=== PATIENT | male | born 1995 | race Caucasian/White ===

== ENCOUNTER 2019-03-06 01:07 | Emergency (ER) | payer OTHER ==
[2019-03-06] MEDS ORDERED: Sodium Chloride 0.9% 1,000 ML IV ONE (01:09)
[2019-03-06] MEDS ORDERED: Aspirin 81 MG Tab.Chew PO ONE (01:09)
--- NOTE | 2019-03-06 01:12 | EDM.PDOC ---
ED HPI GENERAL MEDICAL PROBLEM - General Chief Complaint: Chest Pain Stated Complaint: CHEST PAIN Time Seen by Provider: 03/06/19 01:12 Source of Information: Reports: Patient - History of Present Illness INITIAL COMMENTS - FREE TEXT/NARRATIVE: HISTORY AND PHYSICAL: History of present illness: [Patient developed left-sided chest pain after going to bed tonight he rated 8 out of 10 became very anxious as he thought he may be having a heart attack pain increased on arrival is in no distress not associated with shortness of breath or diaphoresis no radiation arm neck or jaw however I can change worsen symptoms with movement of the left shoulder girdle is clear muscle spasm over left pectoralis major no fever nausea vomiting chills sweats] Review of systems: As per history of present illness and below otherwise all systems reviewed and negative. Past medical history: As per history of present illness and as reviewed below otherwise noncontributory. Surgical history: As per history of present illness and as reviewed below otherwise noncontributory. Social history: No reported history of drug or alcohol abuse. Family history: As per history of present illness and as reviewed below otherwise noncontributory. Physical exam: HEENT: Atraumatic, normocephalic, pupils reactive, negative for conjunctival pallor or scleral icterus, mucous membranes moist, throat clear, neck supple, nontender, trachea midline. Lungs: Clear to auscultation, breath sounds equal bilaterally, chest nontender. Heart: S1S2, regular, negative for clicks, rubs, or JVD. Abdomen: Soft, nondistended, nontender. Negative for masses or hepatosplenomegaly. Negative for costovertebral tenderness. Pelvis: Stable nontender. Genitourinary: Deferred. Rectal: Deferred. Extremities: Atraumatic, negative for cords or calf pain. Neurovascular unremarkable. Neuro: Awake, alert, oriented. Cranial nerves II through XII unremarkable. Cerebellum unremarkable. Motor and sensory unremarkable throughout. Exam nonfocal. Diagnostics: [CBC CMP troponin EKG Chest 1 view ] Therapeutics: [ normal saline Aspirin 324 mg chewable ] Impression: [ muscle spasm -left pectoralis major] Definitive disposition and diagnosis as appropriate pending reevaluation and review of above. chest Pain Score (Numeric/FACES): 0 - Related Data Allergies Allergy/AdvReac Type Severity Reaction Status Date / Time No Known Allergies Allergy Verified 03/06/19 01:08 Home Meds: Home Meds . [No Known Home Meds] 03/06/19 [History] ED ROS GENERAL - Review of Systems Review Of Systems: See Below ED EXAM, GENERAL - Physical Exam Exam: See Below Course - Vital Signs Last Recorded V/S: Last Vital Signs Temp 96.3 F 03/06/19 01:09 Pulse 97 03/06/19 01:09 Resp 18 03/06/19 01:09 BP 156/97 H 03/06/19 01:09 Pulse Ox 100 03/06/19 01:09 - Orders/Labs/Meds Orders: Active Orders 24 hr Category Date Time Status EKG Documentation Completion [RC] STAT Care 03/06/19 01:09 Active Labs: Laboratory Tests 03/06/19 03/06/19 03/06/19 Range/Units 01:17 01:17 01:17 WBC 12.91 H (4.0-11.0) K/uL RBC 4.60 (4.50-5.90) M/uL Hgb 14.1 (13.0-17.0) g/dL Hct 39.6 (38.0-50.0) % MCV 86.1 (80.0-98.0) fL MCH 30.7 (27.0-32.0) pg MCHC 35.6 (31.0-37.0) g/dL RDW Std Deviation 36.7 (28.0-62.0) fl RDW Coeff of Gop[place] 12 (11.0-15.0) % Plt Count 270 (150-400) K/uL MPV 8.70 (7.40-12.00) fL Neut % (Auto) 69.7 (48.0-80.0) % Lymph % (Auto) 19.0 (16.0-40.0) % [place] % (Auto) 10.7 (0.0-15.0) % Eos % (Auto) 0.4 (0.0-7.0) % Baso % (Auto) 0.2 (0.0-1.5) % Neut # (Auto) 9.0 H (1.4-5.7) K/uL Lymph # (Auto) 2.5 H (0.6-2.4) K/uL [place] # (Auto) 1.4 H (0.0-0.8) K/uL Eos # (Auto) 0.1 (0.0-0.7) K/uL Baso # (Auto) 0.0 (0.0-0.1) K/uL Sodium 139 (136-148) mmol/L Potassium 3.4 L (3.5-5.1) mmol/L Chloride 99 (98-107) mmol/L Carbon Dioxide 28.0 (21.0-32.0) mmol/L BUN 16 (7.0-18.0) mg/dL Creatinine 1.3 (0.8-1.3) mg/dL Est Cr Clr Drug Dosing 94.13 mL/min Estimated GFR (MDRD) > 60.0 ml/min Glucose 105 (74-106) mg/dL Calcium 9.4 (8.5-10.1) mg/dL Total Bilirubin 0.7 (0.2-1.0) mg/dL AST 25 (15-37) IU/L ALT 27 (14-63) IU/L Alkaline Phosphatase 66 (46-116) U/L Troponin I < 0.050 (0.000-0.056) ng/mL Total Protein 8.0 (6.4-8.2) g/dL Albumin 4.8 (3.4-5.0) g/dL Globulin 3.2 (2.6-4.0) g/dL Albumin/Globulin Ratio 1.5 (0.9-1.6) Urine Color YELLOW Urine Appearance CLEAR Urine pH 7.0 (5.0-8.0) Ur Specific [place] 1.020 (1.001-1.035) Urine Protein TRACE H (NEGATIVE) mg/dL Urine Glucose (UA) NEGATIVE (NEGATIVE) mg/dL Urine Ketones NEGATIVE (NEGATIVE) mg/dL Urine Occult Blood NEGATIVE (NEGATIVE) Urine Nitrite NEGATIVE (NEGATIVE) Urine Bilirubin NEGATIVE (NEGATIVE) Urine Urobilinogen 1.0 (<2.0) EU/dL Ur Leukocyte Esterase NEGATIVE (NEGATIVE) Urine RBC 0-1 (0-2/HPF) Urine WBC 0-1 (0-5/HPF) Ur Epithelial Cells RARE (NONE-FEW) Urine Bacteria RARE (NEGATIVE) Meds: Medications Discontinued Medications Generic Name Dose Route Start Last Admin Trade Name Freq PRN Reason Stop Dose Admin Aspirin 324 mg 03/06/19 01:03/06/19 01:20 Aspirin PO 03/06/19 01:10 324 mg ONETIME ONE Administration Sodium Chloride 1,000 mls @ 999 mls/hr 03/06/19 01:09 03/06/19 01:19 Normal Saline IV 03/06/19 02:09 999 mls/hr STAT ONE Administration Departure - Departure Time of Disposition: : Disposition: Home, Self-Care 01 Condition: Good Clinical Impression: Muscle spasm - Discharge Information Forms: ED Department Discharge Additional Instructions: The following information is given to patients seen in the emergency department who are being discharged to home. This information is to outline your options for follow-up care. We provide all patients seen in our emergency department with a follow-up referral. The need for follow-up, as well as the timing and circumstances, are variable depending upon the specifics of your emergency department visit. If you don't have a primary care physician on staff, we will provide you with a referral. We always advise you to contact your personal physician following an emergency department visit to inform them of the circumstance of the visit and for follow-up with them and/or the need for any referrals to a consulting specialist. The emergency department will also refer you to a specialist when appropriate. This referral assures that you have the opportunity for follow-up care with a specialist. All of these measure are taken in an effort to provide you with optimal care, which includes your follow-up. Under all circumstances we always encourage you to contact your private physician who remains a resource for coordinating your care. When calling for follow-up care, please make the office aware that this follow-up is from your recent emergency room visit. If for any reason you are refused follow-up, please contact the [facility] emergency department at and asked to speak to the emergency department charge nurse. - My Orders Last 24 Hours: My Active Orders 03/06/19 01:09 EKG Documentation Completion [RC] STAT - Assessment/Plan Last 24 Hours: My Active Orders 03/06/19 01:09 EKG Documentation Completion [RC] STAT
--- NOTE | 2019-03-06 02:01 | CR ---
Indication: Pain Technique: Chest 1 view Comparison: None Findings/Impression: Cardiovascular and mediastinum: Heart size and vasculature are normal in caliber and appearance. Mediastinum is within normal limits. Lungs and pleural space: Lungs are clear. No sign of infiltrate or mass. No sign of pleural effusion. No pneumothorax. Bones and soft tissues: No significant findings. Dictated by Jossue Duran MD @ 03/06/2019 2:00:26 AM Dictated by: Jossue Duran MD @ 03/06/2019 02:00:30 (Electronically Signed)
[2019-03-06 02:03] LABS: CHLORIDE,CL 99 mmol/L (98-107); SODIUM,NA 139 mmol/L (136-148)
== END 2019-03-06 02:30 | disposition home or self-care (01) ==
LOC: MW.ED 01:07
DX: M62.830 Muscle spasm of back (principal)
CPT/HCPCS: 36415; 71045; 80053; 81001; 84484; 85025; 93005; 96360; 99285; A9270; J7040; 99284

== ENCOUNTER 2023-06-25 04:27 | Emergency (ER) | payer SELFPAY | END 2023-06-25 05:29 | disposition home or self-care (01) | LOC: MW.ED 04:27 | DX: Z04.1 Encounter for examination and observation following transport accident (principal) | CPT/HCPCS: 99282; 99284 ==

== ENCOUNTER 2023-10-06 05:36 | Emergency (ER) | payer SELFPAY ==
[2023-10-06] MEDS ORDERED: Lidocaine 4% 1 each Patch TOP PRN (05:57)
[2023-10-06 06:23] LABS: BASOPHILS ABSOLUTE AUTO 0.05 K/uL (0.00-0.20); BASOPHILS PERCENT AUTO 0.7 % (0.0-1.0); EOSINOPHILS ABSOLUTE AUTO 0.08 K/uL (0.00-0.45); EOSINOPHILS PERCENT AUTO 1.1 % (0.0-6.0); HEMATOCRIT 39.7 % (42.0-52.0); HEMOGLOBIN 14.3 g/dL (14.0-18.0); IMMATURE GRAN ABSOLUTE AUTO 0.01 K/uL (0.00-0.05); IMMATURE GRAN PERCENT AUTO 0.1 % (0.0-0.4); LYMPHOCYTES ABSOLUTE AUTO 2.27 K/uL (1.00-4.80); LYMPHOCYTES PERCENT AUTO 30.1 % (24.0-44.0); MEAN CORPUSCULAR HEMOGLOBIN 31.6 pg (28.0-32.0); MEAN CORPUSCULAR VOLUME 87.6 fL (83.0-99.0); MEAN PLATELET VOLUME 8.6 fL (9.4-12.4); MONOCYTES PERCENT AUTO 9.3 % (0.0-8.0); NEUTROPHILS ABSOLUTE AUTO 4.42 K/uL (1.80-7.70); NEUTROPHILS PERCENT AUTO 58.7 % (41.0-71.0); PLATELET COUNT,PLT 290 K/uL (150-400); RED BLOOD CELL COUNT 4.53 M/uL (4.52-5.90); WHITE BLOOD CELL COUNT,WBC 7.53 K/uL (3.9-11.3)
[2023-10-06 06:50] LABS: A/G RATIO 1.2 (0.9-1.6); ALANINE AMINOTRANSFERASE,ALT 23 IU/L (14-63); ALBUMIN 4.1 g/dL (3.4-5.0); ALKALINE PHOSPHATASE 80 U/L (46-116); ASPARTATE AMNIOTRANSFERASE,AST 16 IU/L (15-37); BILIRUBIN TOTAL 0.3 mg/dL (0.2-1.0); BLOOD UREA NITROGEN,BUN 10 mg/dL (7.0-18.0); CALCIUM 8.9 mg/dL (8.5-10.1); CARBON DIOXIDE,CO2 28.1 mmol/L (21.0-32.0); CHLORIDE,CL 102 mmol/L (98-107); EST CRCL DRUG DOSING (CG) 117.13 mL/min; GLUCOSE RANDOM 98 mg/dL (74-106); PROTEIN TOTAL,TP 7.4 g/dL (6.4-8.2); SODIUM,NA 138 mmol/L (136-148)
[2023-10-06 06:51] LABS: ESTIMATED GFR 105 mL/min (>60)
[2023-10-06] MEDS ORDERED: Ketorolac 30 MG/ML SDV IVPUSH STA (07:02)
== END 2023-10-06 07:26 | disposition home or self-care (01) ==
LOC: MW.ED 05:36
DX: R07.89 Other chest pain (principal)
CPT/HCPCS: 36415; 71045; 80053; 84484; 85025; 85379; 93005; 96374; 99285; A9270; J1885; 93010; 99284